=== PATIENT | female | born 1950 | race Caucasian/White ===

== ENCOUNTER 2018-03-29 14:11 | Outpatient (CLI) | payer MEDICARE, BC ==
--- NOTE | 2018-03-29 16:03 | BD ---
DEXA BONE MINERAL DENSITOMETRY STUDY 03/29/18 HISTORY: Osteopenia. FINDINGS: Lumbar Spine: BMD (g/cm2) L1 0.838 T-Score: -1.4 Z-Score: 0.3 L2 0.994 T-Score: -0.3 Z-Score: 1.6 L3 1.002 T-Score: -0.7 Z-Score: 1.2 L4 0.959 T-Score: -0.9 Z-Score: 1.1 L1-L4 0.952 T-Score: -0.9 Z-Score: 1.0 Left Femoral Neck: 0.695 T-Score: -1.4 Z-Score: 0.2 Total Femur: 0.838 T-Score: -0.9 Z-Score: 0.5 There is right convex scoliosis of the lumbar spine with prominent degenerative changes in the lumbar spine which may possibly elevate the bone mineral density and underestimate the risk for fracture. Impression: 1. Mild osteopenia left femoral neck indicating two fold increased risk for fracture. 2. Normal bone mineralization of lumbar spine, but as noted above, there are degenerative change s in the spine which may underestimate the risk for fracture. 3. Ten year major osteoporotic risk fracture is 13% with ten year hip fracture risk of 1.6%. 4. Right convex scoliosis thoracolumbar spine. POS: HILARIA
== END 2018-03-29 14:12 | disposition home or self-care (01) ==
LOC: BICMAMMO 14:11
PROVIDERS: ATTEND Internal Medicine Hematology & Oncology
DX: Z12.31 Encounter for screening mammogram for malignant neoplasm of breast (principal); Z13.820 Encounter for screening for osteoporosis; M85.852 Other specified disorders of bone density and structure, left thigh; M47.896 Other spondylosis, lumbar region; M41.9 Scoliosis, unspecified; Z85.3 Personal history of malignant neoplasm of breast
CPT/HCPCS: 77063; 77067; 77080

== ENCOUNTER 2018-08-15 14:35 | Outpatient (CLI) | payer MEDICARE, BC ==
--- NOTE | 2018-08-15 15:06 | RAD ---
THREE VIEWS CHEST: Date: 08-15-18 Provided Clinical History: Dyspnea. FINDINGS: Comparison is made with the study dated 06-06-18. Cardiac and mediastinal silhouette is unchanged in appearance. Stable elevation of the right hemidiap hragm. No focal consolidation, pleural fluid or pneumothorax apparent. Post-operative changes of left shoulder arthroplasty are partially visualized. Surgical clips are see n in the right axillary region. IMPRESSION: No evidence for an acute cardiopulmonary process. POS: T[facility]
== END 2018-08-15 14:36 | disposition home or self-care (01) ==
LOC: RAD 14:35
PROVIDERS: ATTEND Internal Medicine Pulmonary Disease
DX: R06.00 Dyspnea, unspecified (principal)
CPT/HCPCS: 71046

== ENCOUNTER 2018-09-28 21:10 | Inpatient (IN) | payer MEDICARE, BC ==
[2018-09-28 21:48] LABS: #Lymphocytes 0.9 thou/uL (1.20-3.40); #Monocytes 0.4 thou/uL (0.11-0.59); #Neutrophils 5.2 thou/uL (1.40-6.50); %Basophils 0.2 % (0.0-1.0); %Eosinophils 0.1 % (0.0-10.0); %Monocytes 6.6 % (0.0-10.0); Hemoglobin 12.5 g/dL (12.0-16.0); Mean Corpuscular HGB CONC 33.3 g/dL (32.0-36.0); Mean Corpuscular Hemoglobin 31.2 pg (27.0-31.0); Mean Corpuscular Volume 93.7 fL (78.0-98.0); Mean Platelet Volume 6.6 fL (7.4-10.4); Platelet Count 242 thou/uL (130-400); RBC Distribution Width 12.8 % (11.5-14.5); Red Blood Cell (RBC) Count 3.99 mill/uL (4.20-5.40); White Blood Cell (WBC) Count 6.5 thou/uL (4.8-10.8)
--- NOTE | 2018-09-28 21:49 | RAD ---
FEXAM: Portable chest INDICATIONS: Dyspnea COMPARISON: 08/15/2018 FINDINGS: Heart size upper normal. There is vascular congestion. Diffuse interstitial hazy alveolar o pacities bilaterally, more prominent on the right. Findings may represent diffuse edema although supe rimposed inflammatory process cannot be excluded. Elevated right hemidiaphragm again noted. IMPRESSION: Vascular congestion with evidence of interstitial and patchy alveolar edema more prominen t on the right. Superimposed infiltrate not excluded.
[2018-09-28 22:18] LABS: ALT (SGPT) 80 U/L (8-55); AST (SGOT) 55 U/L (5-34); Albumin 4.1 g/dL (3.4-4.8); Alkaline Phosphatase 143 U/L (40-150); Anion Gap 14 mmol/L (10-20); BUN (Urea Nitrogen) 12 mg/dL (9.8-20.1); Bilirubin, Total 0.3 mg/dL (0.2-1.2); Calc. Creatinine Clearance 0 mL/min (70-130); Calcium 9.6 mg/dL (7.8-10.44); Carbon Dioxide 31 mmol/L (23-31); Chloride 90 mmol/L (98-107); Estimated GFR-MDRD 85; Globulin 2.3 g/dL (2.4-3.5); Glucose 137 mg/dL (80-115); Potassium 4.8 mmol/L (3.5-5.1); Protein, Total 6.4 g/dL (6.0-8.3); Sodium 130 mmol/L (136-145)
[2018-09-28 22:36] LABS: Bilirubin Negative (Negative); Blood, Urine Negative (Negative); Clarity CLEAR (Clear); Glucose, Urine (Dipstick) Negative (Negative); Leukocyte Negative (Negative); Nitrite Negative (Negative); Protein, Urine (Dipstick) Trace mg/dL (Neg-Trace); Urobilinogen 0.2 mg/dL (0.2-1.0)
[2018-09-28 22:45] LABS: CKMB 3.4 ng/mL (0-6.6)
--- NOTE | 2018-09-28 22:59 | PDOC.FPRHP ---
Addendum entered and electronically signed by Alethea Avendano MD 09/29/18 05:50 : ROS: Endorses Dyspnea, Cough, Fever, Chills, congestion Denies: Vision changes, sore throat, chest pain, palpitations, abdominal pain, diarrhea, constipation, tingling, numbness, lesions, rash, dysuria PE: A&Ox3, in no acute distress. Speaking in full sentences Neck: No LAD, supple CV: RRR, no murmurs, radial and dorsalis pedis pulses 2+ Pulm: Diffuse expiratory wheezing Abdominal: BS+, nontender on palpation, no masses MSK: No edema, no obvious deformities Skin: No rash Original Note: - History of Present Illness Chief Complaint: SOB History of Present Illness: Ms Gomez is a68yo female with pmh of prediabetes presenting with SOB. She was diagnosed with pneumonia at [facility] 09/26 by CXR and started on levaquin. She has taken 2 doses so far and has had worsening of symptoms. Reports 3 weeks ago symptoms started as URI, cough, sore throat, congestion. Endorses subjective fever, episode of hemoptysis this AM, teaspoon amt of blood. She is not on oxygen at baseline. Has been hospitalized twice before for pneumonia, last hospitalization May 2018. PCP: [facility] (Dr Harrison) ED Course: Levaquin 750mg, 1L NS Trop 0.052 CXR: Vascular congestion with evidence of interstitial and patchy alveolar edema more prominent on the right - Allergies/Adverse Reactions Allergies Allergy/AdvReac Type Severity Reaction Status Date / Time No Known Drug Allergies Allergy Verified 09/29/18 02:30 - Home Medications Medication Instructions Recorded Confirmed Type Escitalopram Oxalate 20 mg PO QAM 09/28/18 09/29/18 History clonazePAM [Klonopin] 0.5 mg PO BID PRN 09/28/18 09/28/18 History metFORMIN [Glucophage] 500 mg PO QAM 09/28/18 09/29/18 History Albuterol Sulfate [Ventolin HFA] 2 puff INH Q4HR PRN 09/29/18 09/29/18 History Cholecalciferol (Vitamin D3) 10,000 unit PO DAILY 09/29/18 09/29/18 History [Vitamin D3] Diclofenac Sodium DR [Voltaren] 50 mg PO BID 09/29/18 09/29/18 History - History PMHx: Prediabetes, Anxiety/depression, hx of breast cancer s/p mastectomy, solitary lung nodule PSHx: Shoulder reverse replacement FHx: Noncontributory Social: Hx of cocaine abuse. Former smoker 12.5 pack years, quit in 2010 after 25yrs. Drinks 2 beers/wk - Vital signs BP: 146/81 HR: 98 RR: 23 Tmax: 98.9 Pox: 94% on 4L Wt: 59kg - Physical Exam Constitutional: NAD, awake, alert and oriented, well developed FMR H&P: Results - Labs Result Diagrams: 09/29/18 06:37 09/29/18 06:37 Lab results: WBC 6.5 thou/uL (4.8-10.8) 09/28/18 21:26 Hgb 12.5 g/dL (12.0-16.0) 09/28/18 21:26 Hct 37.4 % (36.0-47.0) 09/28/18 21:26 MCV 93.7 fL (78.0-98.0) 09/28/18 21:26 Plt Count 242 thou/uL (130-400) 09/28/18 21:26 Neutrophils % 79.0 % (42.0-75.0) H 09/28/18 21:26 Sodium 130 mmol/L (136-145) L 09/28/18 21:26 Potassium 4.8 mmol/L (3.5-5.1) 09/28/18 21:26 Chloride 90 mmol/L (98-107) L 09/28/18 21:26 Carbon Dioxide 31 mmol/L (23-31) 09/28/18 21:26 BUN 12 mg/dL (9.8-20.1) 09/28/18 21:26 Creatinine 0.69 mg/dL (0.6-1.1) 09/28/18 21:26 Glucose 137 mg/dL (80-115) H 09/28/18 21:26 Lactic Acid 1.7 mmol/L (0.5-2.2) 09/28/18 21:26 Calcium 9.6 mg/dL (7.8-10.44) 09/28/18 21:26 Total Bilirubin 0.3 mg/dL (0.2-1.2) 09/28/18 21:26 AST 55 U/L (5-34) H 09/28/18 21:26 ALT 80 U/L (8-55) H 09/28/18 21:26 Alkaline Phosphatase 143 U/L (40-150) 09/28/18 21:26 CK-MB (CK-2) 3.4 ng/mL (0-6.6) 09/28/18 21:26 B-Natriuretic Peptide 86.6 pg/mL (0-100) 09/28/18 21:26 Serum Total Protein 6.4 g/dL (6.0-8.3) 09/28/18 21:26 Albumin 4.1 g/dL (3.4-4.8) 09/28/18 21:26 Urine Ketones 80 mg/dL (Negative) H 09/28/18 22:22 Urine Blood Negative (Negative) 09/28/18 22:22 Urine Nitrite Negative (Negative) 09/28/18 22:22 Ur Leukocyte Esterase Negative (Negative) 09/28/18 22:22 - EKG Interpretation EKG: normal sinus rhythm, Rate (beats per minute): 100, T waves normal, [place] normal. - Radiology Interpretation Chest x-ray Status: image reviewed by me, report reviewed by me Additional comment: Vascular congestion with evidence of interstitial and patchy alveolar edema more prominent on the right. Superimposed infiltrate not excluded FMR H&P: A/P - Problem List (1) Acute respiratory failure with hypoxia Current Visit: Yes Status: Acute Code(s): J96.01 - ACUTE RESPIRATORY FAILURE WITH HYPOXIA (2) Pneumonia Current Visit: Yes Status: Acute Code(s): J18.9 - PNEUMONIA, UNSPECIFIED ORGANISM (3) Prediabetes Current Visit: Yes Status: Chronic Code(s): R73.03 - PREDIABETES (4) Anxiety Current Visit: Yes Status: Chronic Code(s): F41.9 - ANXIETY DISORDER, UNSPECIFIED (5) Depression Current Visit: Yes Status: Chronic Code(s): F32.9 - MAJOR DEPRESSIVE DISORDER, SINGLE EPISODE, UNSPECIFIED (6) Hx of breast cancer Current Visit: Yes Status: Chronic Code(s): Z85.3 - PERSONAL HISTORY OF MALIGNANT NEOPLASM OF BREAST - Plan Ms Gomez is a 68yo female with pmh of prediabetes, former tobacco abuse Acute hypoxic respiratory failure 2/2 pneumonia failed outpt treatment - SpO2 54% on RA initially, currently 94% on 4L NC - CXR: Vascular congestion with evidence of interstitial and patchy alveolar edema more prominent on the right. BNP 86 - 2 days outpt levaquin prior to presentation - s/p Levaquin in ED - Starting Azithromycin and Rocephin - S/p 1L NS - Supplemental O2, maintain sats >94% - Procal ordered - Blood cultures pending - Admit to medical Indeterminate troponin - likely secondary to demand ischemia - EKG no ST segment changes - Continue to trend Hyponatremia - 130 - Urine studies ordered - Continue to monitor Prediabetes - Last A1c > 3mo ago. No records - A1c ordered - CC diet - Continue home metformin Transaminitis - Hep studies ordered - RUQ US Anxiety/Depression - Continue home Clonazepam PRN and Escitalopram Hx of Breast Cancer s/p mastectomy Code Status: FULL DVT ppx: SCDs PCP: [facility] (Dr Harrison) FMR H&P: Upper Level - Pertinent history Pooja Gomez is a 68 year old female who presents to the ED with a complaint of worsening shortness of breath and cough despite recent antibiotic treatment for pneumonia. [facility] and given Levaquin. She reports worsening of her symptoms. She had an episode of hemoptysis this evening. - Pertinent findings Exam: General:Alert and oriented; no apparent distress Heart: regular rate and rhythm, no murmurs, rubs, or gallops Lungs:faint expiratory wheezes heard diffusely Extremities: no edema CXR: vascular congestion, patchy alveolar edema. - Plan Date/Time: 09/28/18 1170 Maddie Robles, have evaluated this patient and agree with findings/plan as outlined by internet marketing analyst resident. Pertinent changes/additions are listed here. Acute hypoxic respiratory failure secondary to community acquired pneumonia - Will admit to medical floor as an inpatient. - Azithromycin and Rocephin. Will de-escalate as patient improves. - supplemental oxygen as needed to keep sats > 90% - sputum GS/culture. - procalcitonin. blood cultures pending. Indeterminate troponin - likely secondary to demand ischemia. - will trend - EKG negative for STEMI Mild hyponatremia - possibly SIADH given pulmonary pathology. - will further evaluate with serum and urine studies. Elevated transaminases - hepatitis panel. - RUQ US History of breast cancer - ER/GA/HER-2 positive; s/p right simple mastectomy Pre-diabetes - will obtain A1C Addendum - Attending - Attending Attestation Date/Time: 09/29/18 0711 I personally evaluated the patient and discussed the management with Dr. Avendano I agree with the History, Examination, Assessment and Plan documented above with any addition or exceptions noted below. 68 yo female with worsening fever chills and malaise s/p starting levaquin for Pneumonia patient with respiratory failure admitted with failed outpatient management of CAP. PMHX breast CA s/p mastectomy and reconstruction 2010 [place] , [place] no chemo no XRT, Patient followed by Dr Carrington pulmonary nodule and chronic bronchtis. Lovenox for DVT prophylaxis.[id number] low at admission note elevated troponin will continue to trend. US for evaluation elevated LFT's
[2018-09-28] MEDS ORDERED: Aspirin Chewable 81 MG TAB ONE (23:05)
[2018-09-29] MEDS ORDERED: HYDROcodone/Acetaminophen 10/325 mg Tablet ONE (00:14)
[2018-09-29] MEDS ORDERED: Ibuprofen 200 MG TAB PO PRN (01:40)
[2018-09-29] MEDS ORDERED: Diabetic Tussin 200 MG/10 ML UDCUP PO PRN (01:40)
[2018-09-29] MEDS ORDERED: clonazePAM 0.5 MG TAB PO PRN (01:40)
[2018-09-29 01:45] LABS: CKMB 3.2 ng/mL (0-6.6)
[2018-09-29] MEDS: cefTRIAXone\\ROCEPHIN 1 GM in Sodium Chloride 0.9% 100 ML IVPB SCH (02:31)
[2018-09-29 02:39] LABS: HBSAg Index 0.36 S/CO (0-0.99); Hep A IgM AB Non-Reactive (NonReactive); Hep A IgM S/CO 0.21 S/CO (0-0.79); Hep B Surf Ag Non-Reactive S/CO (NonReactive); Hep C IgG Ab Non-Reactive (NonReactive); Hepatitis B Core IgM Abs Non-Reactive (NonReactive)
[2018-09-29] MEDS: Azithromycin 500 MG in Sodium Chloride 0.9% 250 ML 250 ML IVPB SCH (03:24)
[2018-09-29 03:30] VITALS: BMI 22.3
[2018-09-29 06:57] LABS: #Lymphocytes 1.3 thou/uL (1.20-3.40); #Monocytes 0.5 thou/uL (0.11-0.59); #Neutrophils 2.4 thou/uL (1.40-6.50); %Basophils 0.5 % (0.0-1.0); %Eosinophils 0.4 % (0.0-10.0); %Lymphocytes 30.9 % (21.0-51.0); %Monocytes 11.9 % (0.0-10.0); %Neutrophils 56.3 % (42.0-75.0); Hemoglobin 11.7 g/dL (12.0-16.0); Mean Corpuscular HGB CONC 33.3 g/dL (32.0-36.0); Mean Corpuscular Hemoglobin 31.1 pg (27.0-31.0); Mean Corpuscular Volume 93.5 fL (78.0-98.0); Mean Platelet Volume 6.6 fL (7.4-10.4); Platelet Count 220 thou/uL (130-400); RBC Distribution Width 12.7 % (11.5-14.5); Red Blood Cell (RBC) Count 3.75 mill/uL (4.20-5.40); White Blood Cell (WBC) Count 4.3 thou/uL (4.8-10.8)
[2018-09-29 07:06] LABS: Hemoglobin A1c 5.2 % (4.0-6.0)
[2018-09-29 07:18] LABS: Anion Gap 10 mmol/L (10-20); BUN (Urea Nitrogen) 5 mg/dL (9.8-20.1); Calc. Creatinine Clearance 92 mL/min (70-130); Calcium 9.1 mg/dL (7.8-10.44); Carbon Dioxide 35 mmol/L (23-31); Chloride 96 mmol/L (98-107); Estimated GFR-MDRD Greater than 90; Glucose 113 mg/dL (80-115); Potassium 4.3 mmol/L (3.5-5.1); Sodium 137 mmol/L (136-145)
[2018-09-29 07:25] LABS: Troponin I 0.058 ng/mL (< 0.028)
--- NOTE | 2018-09-29 07:46 | PDOC.FM ---
- Subjective Subjective: Pt states she is doing fair this morning. She denies sob but admits that she is also on O2 currently. She states she has not coughed up blood since she has been here. She denies chest pain, abdominal pain, or nausea/vomiting. She denies any exposure to TB including fci, sick contacts, or shelters. - Objective MAR Reviewed: Yes Vital Signs & Weight: Vital Signs (12 hours) Temp Pulse Resp BP Pulse Ox 09/29/18 04:18 97.5 F L 77 21 H 147/69 H 93 L 09/29/18 03:31 84 20 09/29/18 01:37 96.9 F L 80 20 134/79 93 L Weight Weight 62.681 kg I&O: 09/28/18 09/29/18 09/30/18 06:59 06:59 06:59 Intake Total 500 Output Total 200 Balance 300 Result Diagrams: 09/29/18 06:37 09/29/18 06:37 Phys Exam - Physical Examination Constitutional: NAD HEENT: moist MMs Neck: supple, full ROM Crackles in left mid and lower lobe Cardiovascular: RRR S2 splitting increased with inspiration Gastrointestinal: soft, non-tender, no distention, positive bowel sounds Musculoskeletal: no edema, pulses present Neurological: normal sensation, moves all 4 limbs Psychiatric: A&O x 3 Skin: cap refill <2 seconds Dx/Plan (1) Acute respiratory failure with hypoxia Code(s): J96.01 - ACUTE RESPIRATORY FAILURE WITH HYPOXIA Status: Acute (2) Pneumonia Code(s): J18.9 - PNEUMONIA, UNSPECIFIED ORGANISM Status: Acute (3) Anxiety Code(s): F41.9 - ANXIETY DISORDER, UNSPECIFIED Status: Chronic (4) Depression Code(s): F32.9 - MAJOR DEPRESSIVE DISORDER, SINGLE EPISODE, UNSPECIFIED Status : Chronic (5) Hx of breast cancer Code(s): Z85.3 - PERSONAL HISTORY OF MALIGNANT NEOPLASM OF BREAST Status: Chronic - Plan Plan: This is a 68 yo female with a pmh of breast cancer Acute hypoxic respiratory failure 2/2 pneumonia outpt -Satting at 93 on 4L currently -CXR suggestive of PNA -Pt on azithromycin and rocephin -Procal negative Pending blood cultures -Maintain O2 >92% Indeterminate troponin -Levels have plateaued -No EKG changes -likely demand ischemia -Hyponatremia, resolved Prediabetes -A1c 5.2 -CC diet -continue metformin Transaminitis -Hepititis panel negative -Pending RUQ US Anxiety/depression -Continue home meds Hx of breast cancer s/p masectomy, no radiation Addendum - Attending - Attending Attestation Date/Time: 09/29/18 1403 I personally evaluated the patient and discussed the management with Dr. Poole I agree with the History, Examination, Assessment and Plan documented above with any addition or exceptions noted below. History of recurrent Pneumonias Patent with PMHX breast Ca and questionable pre- existing pulmonary abnormalities. Patient procalcitonin is negative which is unusual give ineffective treatment with 2 doses of levaquin rec consider atypical etiologies history of breast cancer, vasculitis rec continue current treatment CT chest today and consider inpt Pulmonary consult if not improving on serial exam and f/ u CXR.
[2018-09-29] MEDS ORDERED: Non-Formulary Item 1 EACH (Cholecalciferol (Vitamin D3) [Vitamin D3] 10,000 UNIT) PO SCH (09:00)
--- NOTE | 2018-09-29 09:00 | ULT ---
RIGHT UPPER QUADRANT ULTRASOUND: Date: 09/29/18 INDICATION: Elevated LFTs. COMPARISON: None. FINDINGS: Overlying bowel gas limits image detail. There is some increased echogenicity of the liver which may reflect mild fatty infiltration. Gallbladder within normal limits. No sonographic Munoz's sign repor dany. Pancreas obscured. Right kidney measures 10.1 cm in length. No hydronephrosis. Focal renal lesio n is evident. Common bile duct measured approximately 4.0 mm. IMPRESSION: 1. Some limitations of exam due to overlying bowel gas. 2. No definite acute sonographic abnormality. POS: BH
[2018-09-29] MEDS: Diclofenac Sodium 50 MG DR TAB PO SCH ×2 (10:26→20:51)
[2018-09-29] MEDS: Escitalopram Oxalate 20 mg Tablet PO SCH (10:27)
[2018-09-29] MEDS: metFORMIN 500 MG TAB PO SCH (10:30)
[2018-09-29] MEDS: Enoxaparin Sodium 40 MG/0.4 ML SYRINGE SC SCH (10:30)
[2018-09-29] MEDS: HYDROcodone/Acetaminophen 10/325 mg Tablet PO PRN (10:31)
--- NOTE | 2018-09-29 11:07 | CT ---
T Chest W Con: 09/29/2018 10:16 AM CLINICAL INDICATION: Shortness of breath and concern for pulmonary nodule. COMPARISON: CTA of the thorax dated June 06, 2018. Procedure: Chest: FINDINGS: Lung and Large Airways: There is patchy airspace opacity within the right upper lobe, right middle lo be, right lower lobe, left upper lobe and lingula. There is also some patchy opacities within the sup erior segment of the left lower lobe. Pleura: within normal limits. Vessels: within normal limits. Atherosclerotic changes in the aorta and coronary arteries. Heart: normal size. No pericardial effusion. Mediastinum and Evon: There are mildly prominent prevascular lymph nodes. The largest measures 1 cm o n image 19 series 2. Chest Wall and Lower Neck: within normal limits. Upper Abdomen: within normal limits. Bones: within normal limits. Thoracolumbar scoliosis. IMPRESSION: Patchy airspace opacities throughout both lungs is suspicious for pneumonia Enlarged lymph nodes of the mediastinum may be reactive. Recommendations: CT follow-up after appropriate therapy is recommended to document clearance.
[2018-09-29] MEDS ORDERED: ISOVUE-370 76%-LOCM 1 ML ONE (15:36)
[2018-09-30] MEDS: cefTRIAXone\\ROCEPHIN 1 GM in Sodium Chloride 0.9% 100 ML IVPB SCH (02:42)
[2018-09-30] MEDS: Azithromycin 500 MG in Sodium Chloride 0.9% 250 ML 250 ML IVPB SCH (03:18)
[2018-09-30 05:17] LABS: #Eosinphils 0.1 thou/uL (0.0-0.7); #Lymphocytes 1.3 thou/uL (1.20-3.40); #Monocytes 0.7 thou/uL (0.11-0.59); #Neutrophils 3.9 thou/uL (1.40-6.50); %Basophils 0.8 % (0.0-1.0); %Eosinophils 1.1 % (0.0-10.0); %Lymphocytes 21.5 % (21.0-51.0); %Monocytes 11.7 % (0.0-10.0); %Neutrophils 64.8 % (42.0-75.0); Hemoglobin 11.2 g/dL (12.0-16.0); Mean Corpuscular HGB CONC 33.1 g/dL (32.0-36.0); Mean Corpuscular Hemoglobin 31.5 pg (27.0-31.0); Mean Corpuscular Volume 95.3 fL (78.0-98.0); Mean Platelet Volume 6.5 fL (7.4-10.4); Platelet Count 225 thou/uL (130-400); RBC Distribution Width 12.7 % (11.5-14.5); Red Blood Cell (RBC) Count 3.54 mill/uL (4.20-5.40)
[2018-09-30 05:38] LABS: Anion Gap 10 mmol/L (10-20); BUN (Urea Nitrogen) 5 mg/dL (9.8-20.1); Calc. Creatinine Clearance 96 mL/min (70-130); Calcium 8.6 mg/dL (7.8-10.44); Carbon Dioxide 36 mmol/L (23-31); Chloride 98 mmol/L (98-107); Estimated GFR-MDRD Greater than 90; Glucose 131 mg/dL (80-115); Potassium 3.8 mmol/L (3.5-5.1); Sodium 140 mmol/L (136-145)
--- NOTE | 2018-09-30 07:02 | PDOC.FM ---
- Subjective Subjective: Pt states she is breathing well this morning. She denies chest pain, headaches, nausea, vomiting, or abdominal pain. She did report an episode of diarrhea overnight. She did reports exposure to a walk in chicken coup. - Objective MAR Reviewed: Yes Vital Signs & Weight: Vital Signs (12 hours) Temp Pulse Resp BP BP Pulse Ox 09/30/18 03:19 97.9 F 76 18 135/63 96 09/29/18 20:51 86 18 09/29/18 19:45 98.1 F 72 18 122/59 L 97 Weight Admit Weight 62.681 kg Weight 62.681 kg I&O: 09/29/18 09/30/18 10/01/18 06:59 06:59 06:59 Intake Total 500 500 Output Total 200 300 Balance 300 200 Result Diagrams: 09/30/18 04:57 09/30/18 04:57 Phys Exam - Physical Examination Constitutional: NAD HEENT: moist MMs Neck: supple, full ROM Respiratory: no wheezing Crackles on the left side Cardiovascular: RRR, no significant murmur, no rub Gastrointestinal: soft, non-tender, no distention, positive bowel sounds Musculoskeletal: no edema, pulses present Neurological: normal sensation, moves all 4 limbs Psychiatric: normal affect, A&O x 3 Skin: cap refill <2 seconds Dx/Plan (1) Acute respiratory failure with hypoxia Code(s): J96.01 - ACUTE RESPIRATORY FAILURE WITH HYPOXIA Status: Acute (2) Pneumonia Code(s): J18.9 - PNEUMONIA, UNSPECIFIED ORGANISM Status: Acute (3) Anxiety Code(s): F41.9 - ANXIETY DISORDER, UNSPECIFIED Status: Chronic (4) Depression Code(s): F32.9 - MAJOR DEPRESSIVE DISORDER, SINGLE EPISODE, UNSPECIFIED Status : Chronic (5) Hx of breast cancer Code(s): Z85.3 - PERSONAL HISTORY OF MALIGNANT NEOPLASM OF BREAST Status: Chronic - Plan Plan: This is a 68 yo female with a pmh of breast cancer Acute hypoxic respiratory failure 2/2 pneumonia outpt -Satting at 97 on 4L currently -CXR suggestive of PNA, CT chest -Pt on azithromycin and rocephin -Procal negative -Legionella pending -PATRICIA pending -Pending histoplasmosis urine antigen Pending blood cultures -Maintain O2 >92% Indeterminate troponin -Levels have plateaued -No EKG changes -likely demand ischemia -Hyponatremia, resolved Prediabetes -A1c 5.2 -CC diet -continue metformin Transaminitis -Hepititis panel negative -Pending RUQ US Anxiety/depression -Continue home meds Hx of breast cancer s/p masectomy, no radiation Addendum - Attending - Attending Attestation Date/Time: 09/30/18 7085 I personally evaluated the patient and discussed the management with Dr. Poole I agree with the History, Examination, Assessment and Plan documented above with any addition or exceptions noted below. Pneumonia improved patient still oxygen dependant continue current RX rocephin / zithromaxfor CAP, nebulizer treatment and steroids per Pulmonary recommendations. Appreciate another recommendations. Breast CA s/p bilateral mastectomy at 6 year oumar chronic Bronchitis hx tobacco abuse Prediabetes monitor BS with addition steroids
[2018-09-30] MEDS: Diclofenac Sodium 50 MG DR TAB PO SCH ×2 (09:18→21:07)
[2018-09-30] MEDS: Enoxaparin Sodium 40 MG/0.4 ML SYRINGE SC SCH (09:19)
[2018-09-30] MEDS: Escitalopram Oxalate 20 mg Tablet PO SCH (09:19)
[2018-09-30] MEDS: metFORMIN 500 MG TAB PO SCH (09:19)
[2018-09-30] MEDS ORDERED: predniSONE 20 MG TAB PO SCH (12:00)
[2018-09-30 16:56] LABS: Actual Bicarbonate (HCO3a) 36.5 mEq/L (22-28); Calcium, Ionized 1.14 mmol/L (1.12-1.30); Carboxyhemoglobin (COHb) 0.4 gm% (0.0-3.0); Hemoglobin (Hb) 11.7 g/dL (12.0-16.0); O2 Tension (PaO2) 63.6 mmHg (> 80.0); Potassium - ABG Lab 3.37 mmol/L (3.70-5.30); pH, Arterial 7.36 (7.35-7.45)
[2018-09-30 16:57] LABS: CO2 Tension 65.9 mmHg (35.0-45.0)
[2018-09-30 16:58] LABS: ALV-art Gradient 110.705 (0-20)
--- NOTE | 2018-09-30 17:46 | CON ---
DATE OF CONSULTATION: 09/30/2018 SERVICE: Pulmonary Medicine. REASON FOR CONSULTATION: Respiratory failure. HISTORY OF PRESENT ILLNESS: The patient is a 68-year-old white female with past medical history significant for essentially nothing. For the last 20 years, she has had known about elevated right hemidiaphragm. She recalls having a sniff test roughly 10 years ago. At that point, she was told that her diaphragm was functioning. She has had multiple ABGs previously. She does not know if she has ever had hypercapnic failure. Either way, she presented to her primary care physician with fevers, chills, cough bring up sputum production, and a little bit hemoptysis. Ultimately, she was appropriately diagnosed as having a community-acquired pneumonia. Since being on antibiotics, she has felt a lot better, but she continues to have dyspnea that limits her activity. Every time she is intubated for procedure, or is given sedating medications, or is exposed to viruses, she has episodes of hypoxemia. People have a very challenging time getting her off oxygen. This issue goes back over a decade. She is returning to her usual state of health. She does not have any current hemoptysis. Her fever profile has improved and she is actually feeling much improved. PAST MEDICAL HISTORY: 1. Chronically elevated right hemidiaphragm. 2. Breast cancer, status post bilateral mastectomy without ever using chemotherapy or radiation therapy. 3. Anxiety disorder. 4. Major depressive disorder. 5. Prediabetes. PAST SURGICAL HISTORY: 1. Shoulder reverse replacement. 2. Arthroscopy of the shoulder. FAMILY HISTORY: Noncontributory. SOCIAL HISTORY: She has a remote history of cocaine abuse. She has a 12.5 pack year history of smoking, but quit in 2010. She drinks 2 beers on a weekly basis. Currently, she is going through a divorce from a man, she has been with for very long period of time. He has a history of alcoholism. She has no exposure to chemicals, dust, asbestos, or tuberculosis. ALLERGIES: NO KNOWN DRUG ALLERGIES. MEDICATIONS: List of her inpatient medications was reviewed. A couple of small updates were made at this time. REVIEW OF SYSTEMS: General; head, ears, eyes, nose, throat; cardiovascular; respiratory; GI; ; musculoskeletal; neurologic; and skin are negative except as mentioned in the HPI. PHYSICAL EXAMINATION: VITAL SIGNS: Afebrile, pulse 78, blood pressure 132/69, respirations 12, and saturation 94% on 4 L nasal cannula. GENERAL: The patient is awake and alert, in no apparent distress. LUNGS: Decent air entry on the left. On the right, she has very poor air entry. There is no prolonged expiratory phase. Rhonchi are present bilaterally. There are also some minimal dependent crackles, but I do not appreciate any wheezing. HEART: Normal rate and regular. ABDOMEN: Soft, nontender, and nondistended. Bowel sounds are positive. MUSCULOSKELETAL: No cyanosis or clubbing. No pitting in the bilateral lower extremities. NEUROLOGIC: Grossly nonfocal. LABORATORY DATA: WBC 6.0, hemoglobin 11.2, platelets 225,000. Basic metabolic profile is essentially unremarkable. Bicarb is 36, which is very likely to be at her baseline. BNP unremarkable, troponin negative x1. Calcium 9.1, hemoglobin A1c 5.2. Liver function studies are essentially unremarkable except for a minimally elevated AST and ALT. Procalcitonin is negative. Urinalysis is unremarkable. Specifically, she does not have any hematuria. Hepatitis serologies are negative. Blood cultures x2 remain unremarkable. IMAGING STUDIES: CT of the chest demonstrates pulmonary infiltrates scattered throughout bilateral lung schaefer. It is worse on the right compared to the left. She has ground-glass opacifications and areas that are overtly consolidated. More impressive, however, is that she has near-complete atelectasis of the entirety of the right middle lobe, right lower lobe, and most of the left lower lobe. Interstitial fullness is also present. ASSESSMENT: 1. Acute on chronic hypoxic respiratory failure. 2. Chronic hypercapnic respiratory failure. 3. Elevated right hemidiaphragm. 4. Atelectasis of the right middle lobe, right lower lobe, and left lower lobe. 5. Community-acquired pneumonia, on appropriate antibiotics. 6. Metabolic alkalosis, likely compensatory for chronic hypercapnic failure. DISCUSSION AND PLAN: I will give the patient an incentive spirometer. We will get an ABG. If her carbon dioxide level is elevated, I would argue that she should be on BiPAP or a home ventilator. I will perform a sniff study to see whether or not the diaphragm on the right is paralyzed or simply weak. I am doubtful we are dealing with a pulmonary renal process as the patient does not have any red blood cells in the urine. Repeat chest x-ray needs to be performed in the outpatient setting to verify that our infiltrate goes away. These infiltrates are new over the last month. As such, the likelihood that we are dealing with an inflammatory process is quite low. She will require outpatient pulmonary function studies once her lungs recover, and repeat imaging to verify the infiltrates resolve in 4 to 6 weeks in the outpatient setting. Dr. Carrington will continue following starting tomorrow morning. 70 minutes have been devoted to this patient in various activities. I personally reviewed all imaging studies and laboratory data noted within this document. For fifty percent of this time, I was interacting with the patient at the bedside or coordinating care with the care team. For the remainder of the time I was immediately available to the patient in the hospital unit. Job ID: [id number] [id number]
[2018-10-01] MEDS: cefTRIAXone\\ROCEPHIN 1 GM in Sodium Chloride 0.9% 100 ML IVPB SCH (01:29)
[2018-10-01] MEDS: Azithromycin 500 MG in Sodium Chloride 0.9% 250 ML 250 ML IVPB SCH (02:01)
[2018-10-01] MEDS: HYDROcodone/Acetaminophen 10/325 mg Tablet PO PRN ×2 (02:57→10:37)
[2018-10-01 05:27] LABS: #Eosinphils 0.1 thou/uL (0.0-0.7); #Lymphocytes 1.6 thou/uL (1.20-3.40); #Monocytes 0.6 thou/uL (0.11-0.59); %Basophils 0.5 % (0.0-1.0); %Eosinophils 1.5 % (0.0-10.0); %Lymphocytes 29.7 % (21.0-51.0); %Monocytes 11.4 % (0.0-10.0); %Neutrophils 56.8 % (42.0-75.0); Hemoglobin 10.6 g/dL (12.0-16.0); Mean Corpuscular HGB CONC 32.1 g/dL (32.0-36.0); Mean Corpuscular Hemoglobin 30.9 pg (27.0-31.0); Mean Corpuscular Volume 96.3 fL (78.0-98.0); Mean Platelet Volume 6.5 fL (7.4-10.4); Platelet Count 264 thou/uL (130-400); RBC Distribution Width 12.8 % (11.5-14.5); Red Blood Cell (RBC) Count 3.44 mill/uL (4.20-5.40); White Blood Cell (WBC) Count 5.2 thou/uL (4.8-10.8)
[2018-10-01 05:46] LABS: BUN (Urea Nitrogen) 6 mg/dL (9.8-20.1); Calc. Creatinine Clearance 108 mL/min (70-130); Calcium 8.6 mg/dL (7.8-10.44); Estimated GFR-MDRD Greater than 90; Glucose 103 mg/dL (80-115)
[2018-10-01 05:58] LABS: Chloride 98 mmol/L (98-107); Potassium 3.8 mmol/L (3.5-5.1); Sodium 140 mmol/L (136-145)
[2018-10-01 06:01] LABS: Anion Gap 12 mmol/L (10-20); Carbon Dioxide 34 mmol/L (23-31)
--- NOTE | 2018-10-01 06:22 | PDOC.FM ---
- Subjective Subjective: Reports improved breathing overnight. She is still requiring O2. She denies chest pain, abdominal pain, nausea, or vomiting. - Objective MAR Reviewed: Yes Vital Signs & Weight: Vital Signs (12 hours) Temp Pulse Resp BP Pulse Ox 10/01/18 04:00 97.6 F 70 16 97/53 L 95 09/30/18 20:55 94 L 09/30/18 20:45 97.6 F 75 16 138/63 94 L 09/30/18 18:32 86 12 95 Weight Admit Weight 62.681 kg Weight 62.681 kg I&O: 09/29/18 09/30/18 10/01/18 06:59 06:59 06:59 Intake Total 500 500 690 Output Total 200 300 650 Balance 300 200 40 Result Diagrams: 10/01/18 05:01 10/01/18 05:01 Phys Exam - Physical Examination Constitutional: NAD HEENT: moist MMs Neck: supple, full ROM Crackles on right side Cardiovascular: RRR, no significant murmur Gastrointestinal: soft, non-tender, no distention, positive bowel sounds Musculoskeletal: no edema, pulses present Neurological: moves all 4 limbs Psychiatric: normal affect, A&O x 3 Skin: cap refill <2 seconds Dx/Plan (1) Acute respiratory failure with hypoxia Code(s): J96.01 - ACUTE RESPIRATORY FAILURE WITH HYPOXIA Status: Acute (2) Pneumonia Code(s): J18.9 - PNEUMONIA, UNSPECIFIED ORGANISM Status: Acute (3) Anxiety Code(s): F41.9 - ANXIETY DISORDER, UNSPECIFIED Status: Chronic (4) Depression Code(s): F32.9 - MAJOR DEPRESSIVE DISORDER, SINGLE EPISODE, UNSPECIFIED Status : Chronic (5) Hx of breast cancer Code(s): Z85.3 - PERSONAL HISTORY OF MALIGNANT NEOPLASM OF BREAST Status: Chronic - Plan Plan: This is a 68 yo female with a pmh of breast cancer Acute hypoxic respiratory failure 2/2 pneumonia outpt -Satting at 95 on 4L currently -CXR suggestive of PNA, CT chest shows atelectasis -Pt on azithromycin and rocephin (09/28) -Procal negative -Legionella pending -PATRICIA pending -Pending histoplasmosis urine antigen Elevated right hemidiaphragm -Per pulmonology, pt will likely need outpt ventilator vs bipap -Repeat imaging in 4-6 weeks -Pulmonology will perform stiff test to determine function of right hemidiaphragm Pending blood cultures -NGTD at 48 hr Indeterminate troponin -Levels have plateaued -No EKG changes -likely demand ischemia -Hyponatremia, resolved Prediabetes -A1c 5.2 -CC diet -continue metformin Transaminitis -Hepititis panel negative -Pending RUQ US Anxiety/depression -Continue home meds Hx of breast cancer s/p masectomy, no radiation
--- NOTE | 2018-10-01 08:46 | RAD ---
FXR Sniff Test ([facility]) History: Right hemidiaphragm paralysis Comparison: Chest radiograph September 28, 2018 Findings: Multiple fluoroscopic images of the chest were obtained during and expiration and end inspi ration. There is decreased excursion of the right hemidiaphragm. Left hemidiaphragm is normal. There is scarr ing in both lung bases. Impression: Right hemidiaphragm paralysis. Fluoroscopy time: 0.7MIN Dose area product: 2.016Gycm^2
[2018-10-01] MEDS: Escitalopram Oxalate 20 mg Tablet PO SCH (10:34)
[2018-10-01] MEDS: Diclofenac Sodium 50 MG DR TAB PO SCH ×2 (10:35→20:38)
[2018-10-01] MEDS: metFORMIN 500 MG TAB PO SCH (10:36)
[2018-10-01] MEDS: predniSONE 20 MG TAB PO SCH (10:37)
[2018-10-01] MEDS: Enoxaparin Sodium 40 MG/0.4 ML SYRINGE SC SCH (10:37)
--- NOTE | 2018-10-01 12:11 | PRG ---
DATE OF SERVICE: 10/01/2018 SUBJECTIVE: Ms. skelton was admitted with pneumonia, as well as history of very elevated right hemidiaphragm. Her sniff test shows that she has right hemidiaphragm paralysis and this is very likely contributing to her pulmonary status. She is being treated for pneumonia and currently, she is feeling improved. Her abdominal ultrasound was obtained because of slight elevations of her transaminases. She does have fatty liver, but no evidence of cirrhosis or tumor. I would recommend screening her for immunity to hep A and B and if nonimmune, offer her vaccines for hep B. We will continue with treatment of her pneumonia. Job ID: [id number]
--- NOTE | 2018-10-01 16:24 | PRG ---
DATE OF SERVICE: 10/01/2018 SERVICE: Pulmonary Medicine. INTERVAL HISTORY: The patient is doing really well from respiratory standpoint. She is breathing comfortably. I reviewed the results of her ABG, study with her. Otherwise, there has been no change to her condition. Nursing reports no overnight events. She feels that she has cried inside of her chest, but she has a hard time liberating it. PHYSICAL EXAMINATION: VITAL SIGNS: Afebrile, pulse 76, blood pressure 161/75, respirations 20, and saturation 88% on room air. On 3 L, her saturations were maintained at 95%. HEENT: Normocephalic and atraumatic. Sclerae white. Conjunctivae pink. Oral mucosa is moist without lesions. LUNGS: Decent air entry. No prolonged expiratory phase or wheezing. HEART: Normal rate, regular. ABDOMEN: Soft, nontender, nondistended. Bowel sounds are positive. MUSCULOSKELETAL: No cyanosis or clubbing. No pitting in the bilateral lower extremities. NEUROLOGIC: Grossly nonfocal. LABORATORY DATA: WBC 5.2, hemoglobin 10.6, platelets 264,000. PH 7.36, pCO2 of 66, PO2 of 64, corresponding to a saturation of 92%. At this point, she was on 4 L nasal cannula. On room air, her saturations corresponding to 88%. Basic metabolic profile is essentially unremarkable with a creatinine of 0.5. Bicarb is at baseline of 34. Blood cultures x2, influenza A and B, respiratory culture all unremarkable. IMAGING DATA: Sniff study of the right hemidiaphragm is consistent with right diaphragmatic paralysis. ASSESSMENT: 1. Acute on chronic hypoxic respiratory failure. 2. Chronic hypercapnic respiratory failure. 3. Community-acquired pneumonia, improving. 4. Right hemidiaphragm paralysis. 5. Atelectasis of the right middle lobe, right lower lobe, and left lower lobe. 6. Metabolic alkalosis, compensating for her chronic hypercapnic failure. DISCUSSION AND PLAN: The patient has horrendous hypercapnic respiratory failure. 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 Because of the severity of this disease process, I am ordering volume control ventilation for nighttime, and as needed daytime use. Traditional BiPAP would be insufficient to control her respiratory failure, because of the severity of this illness. Antibiotics can be interrupted after a total duration of 7 days. From my perspective, she is stable for discharge from the hospital. She will likely need to be set up with home oxygen for daytime use as she has chronic hypoxic respiratory failure which has been exacerbated by a small amount of pneumonia. Should she fail noninvasive therapy, a HACEK device will be considered prior to any type of tracheostomy. At this point, she is stable for transition out of the hospital provided that we have appropriate equipment set up for her in her home. I will have her follow up with me in clinic in 4 to 6 weeks in the outpatient setting. We will repeat a chest x-ray to verify the infiltrates have gone away. Job ID: [id number]
[2018-10-02] MEDS: cefTRIAXone\\ROCEPHIN 1 GM in Sodium Chloride 0.9% 100 ML IVPB SCH (02:55)
[2018-10-02 06:09] LABS: #Lymphocytes 1.6 thou/uL (1.20-3.40); #Monocytes 0.5 thou/uL (0.11-0.59); #Neutrophils 2.6 thou/uL (1.40-6.50); %Basophils 0.4 % (0.0-1.0); %Eosinophils 0.5 % (0.0-10.0); %Lymphocytes 33.6 % (21.0-51.0); %Monocytes 9.9 % (0.0-10.0); %Neutrophils 55.6 % (42.0-75.0); Hemoglobin 10.8 g/dL (12.0-16.0); Mean Corpuscular HGB CONC 32.7 g/dL (32.0-36.0); Mean Corpuscular Hemoglobin 31.2 pg (27.0-31.0); Mean Corpuscular Volume 95.4 fL (78.0-98.0); Mean Platelet Volume 6.3 fL (7.4-10.4); Platelet Count 311 thou/uL (130-400); RBC Distribution Width 12.6 % (11.5-14.5); Red Blood Cell (RBC) Count 3.47 mill/uL (4.20-5.40); White Blood Cell (WBC) Count 4.6 thou/uL (4.8-10.8)
[2018-10-02 06:23] LABS: BUN (Urea Nitrogen) 8 mg/dL (9.8-20.1); Calc. Creatinine Clearance 106 mL/min (70-130); Estimated GFR-MDRD Greater than 90; Glucose 101 mg/dL (80-115)
[2018-10-02 06:32] LABS: Anion Gap 11 mmol/L (10-20); Carbon Dioxide 36 mmol/L (23-31); Chloride 97 mmol/L (98-107); Potassium 3.8 mmol/L (3.5-5.1); Sodium 140 mmol/L (136-145)
--- NOTE | 2018-10-02 06:36 | PDOC.FM ---
- Subjective Subjective: Pt reports her breathing was good overnight. She denies fever, chills, nausea, vomiting, or chest pain. She states she is ready to home. - Objective MAR Reviewed: Yes Vital Signs & Weight: Vital Signs (12 hours) Temp Pulse Resp BP BP Pulse Ox 10/02/18 04:00 97.9 F 69 17 150/72 H 97 10/01/18 20:45 98.2 F 83 18 127/57 L 94 L 10/01/18 20:10 94 L Weight Admit Weight 62.681 kg Weight 62.681 kg I&O: 09/30/18 10/01/18 10/02/18 06:59 06:59 06:59 Intake Total 575 452 1430 Output Total 031 761 4706 Balance 200 40 -410 Result Diagrams: 10/02/18 05:45 10/02/18 05:44 Phys Exam - Physical Examination Constitutional: NAD HEENT: moist MMs Neck: no JVD, supple, full ROM Crackles worst on the left Cardiovascular: RRR, no significant murmur, no rub Gastrointestinal: soft, non-tender, no distention, positive bowel sounds Musculoskeletal: no edema, pulses present Neurological: moves all 4 limbs Psychiatric: normal affect, A&O x 3 Skin: cap refill <2 seconds Dx/Plan (1) Acute respiratory failure with hypoxia Code(s): J96.01 - ACUTE RESPIRATORY FAILURE WITH HYPOXIA Status: Acute (2) Pneumonia Code(s): J18.9 - PNEUMONIA, UNSPECIFIED ORGANISM Status: Acute (3) Anxiety Code(s): F41.9 - ANXIETY DISORDER, UNSPECIFIED Status: Chronic (4) Depression Code(s): F32.9 - MAJOR DEPRESSIVE DISORDER, SINGLE EPISODE, UNSPECIFIED Status : Chronic (5) Hx of breast cancer Code(s): Z85.3 - PERSONAL HISTORY OF MALIGNANT NEOPLASM OF BREAST Status: Chronic - Plan Plan: This is a 68 yo female with a pmh of breast cancer Acute hypoxic respiratory failure 2/2 pneumonia outpt -Satting at 95 on 4L currently -CXR suggestive of PNA, CT chest shows atelectasis -Pt on azithromycin and rocephin (09/28) -Procal negative -Legionella pending -PATRICIA pending -Pending histoplasmosis urine antigen Elevated right hemidiaphragm -Per pulmonology, pt will likely need outpt ventilator -Repeat imaging in 4-6 weeks -Confirmed by sniff test Pending blood cultures -NGTD at 48 hr Indeterminate troponin -Levels have plateaued -No EKG changes -likely demand ischemia -Hyponatremia, resolved Prediabetes -A1c 5.2 -CC diet -continue metformin Transaminitis -Hepititis panel negative -Pending RUQ US -Pt to receive Hepatitis A and B vaccine Anxiety/depression -Continue home meds Hx of breast cancer s/p masectomy, no radiation
[2018-10-02 06:51] LABS: HBSAg Index 0.31 S/CO (0-0.99); Hep B Core Total Ab Non-Reactive (NonReactive); Hep B Core Total Index 0.06 S/CO (0-0.79); Hep B Surf Ag Non-Reactive S/CO (NonReactive)
[2018-10-02] MEDS ORDERED: Recombivax (HEP-B) 5 MCG/0.5 ML VIAL IM ONE (08:37)
[2018-10-02] MEDS ORDERED: HEPATITIS A VACCINE IM ONE (08:37)
[2018-10-02] MEDS ORDERED: Hepatitis B Vaccine 10 MCG/0.5 ML SYR IM ONE (08:45)
[2018-10-02] MEDS ORDERED: Azithromycin 250 MG TAB PO SCH (09:00)
[2018-10-02] MEDS: Escitalopram Oxalate 20 mg Tablet PO SCH (09:40)
[2018-10-02] MEDS: metFORMIN 500 MG TAB PO SCH (09:40)
[2018-10-02] MEDS: Diclofenac Sodium 50 MG DR TAB PO SCH (09:40)
[2018-10-02] MEDS: predniSONE 20 MG TAB PO SCH (09:40)
[2018-10-02] MEDS: HYDROcodone/Acetaminophen 10/325 mg Tablet PO PRN (09:41)
[2018-10-02] MEDS: Enoxaparin Sodium 40 MG/0.4 ML SYRINGE SC SCH (09:44)
[2018-10-02 11:01] LABS: ANA Symphony (Qualitative) Negative (Negative); ANA Symphony (Quantitative) Less than 0.1 Ratio (< 0.7 Negative); dsDNA IgG Antibody 0.7 IU/mL (<10 Negative)
--- NOTE | 2018-10-02 11:49 | PRG ---
DATE OF SERVICE: 10/02/2018 SERVICE: Pulmonary Medicine. INTERVAL HISTORY: The patient is doing fine from respiratory standpoint. Breathing comfortably. She still requires a little bit of oxygen. She continues to cough , but has a hard time liberating sputum. Otherwise, there has been no interval change to her condition. PHYSICAL EXAMINATION: VITAL SIGNS: Afebrile, pulse 80, blood pressure 174/88, respirations 18, and saturation 97% on 3 L nasal cannula. On room air, her saturations are maintained at 88%. HEART: Normal rate and regular. ABDOMEN: Soft, nontender, nondistended. Bowel sounds are positive. MUSCULOSKELETAL: No cyanosis or clubbing. No pitting in the bilateral lower extremities. NEUROLOGIC: Grossly nonfocal. LABORATORY DATA: WBC 4.6, hemoglobin 10.8, platelets 311,000. Potassium 3.8. Basic metabolic profile is otherwise unremarkable. Calcium 9.0. Influenza A and B are negative, blood cultures x2 and respiratory cultures are all negative to date. ASSESSMENT: 1. Acute on chronic hypoxic respiratory failure. 2. Chronic hypercapnic respiratory failure. 3. Community-acquired pneumonia, resolving. 4. Right hemidiaphragm paralysis. 5. Atelectasis of the right middle lobe, right lower lobe, and left lower lobe. 6. Metabolic alkalosis, compensating for chronic hypercapnic failure. DISCUSSION AND PLAN: The patient is stable for transition out of the hospital. She will need 5 days of azithromycin and 7 days of an equivalent of Rocephin. We have arranged for her to be set up with a home volume ventilator for nighttime use and as needed daytime use. Unfortunately, traditional home BiPAP will be insufficient due to the severity of her underlying process. I will have her return to clinic to see me in 4 to 6 weeks in the outpatient setting with a repeat chest x-ray to verify these infiltrates have resolved. If they have not, additional diagnostic studies may be indicated. From my perspective, she is stable for transition out of the hospital today. Job ID: [id number] MTDD
--- NOTE | 2018-10-02 13:06 | PRG ---
DATE OF SERVICE: Ms. Gomez is sitting quietly in bed, in no distress. She is requiring O2 and this will be sent home with her. Otherwise, she is ready for discharge and will receive a home ventilator per recommendations of the Pulmonary Service. She will follow up with PCP as she would need immunizations for hepatitis A and B, and followup for her significant lung problems. Job ID: [id number]
[2018-10-02 15:21] VITALS: BP 169/71; TEMP 97.8
== END 2018-10-02 18:50 | disposition home or self-care (01) | DRG 193 ==
LOC: ERS 21:10 → 2NO 23:44
PROVIDERS: ADMIT Family Medicine; ATTEND Family Medicine
DX: J18.9 Pneumonia, unspecified organism (principal); J96.21 Acute and chronic respiratory failure with hypoxia; I24.8 Other forms of acute ischemic heart disease; E87.1 Hypo-osmolality and hyponatremia; J98.11 Atelectasis; J96.12 Chronic respiratory failure with hypercapnia; F41.9 Anxiety disorder, unspecified; F32.9 Major depressive disorder, single episode, unspecified; R73.03 Prediabetes; R74.0 Nonspecific elevation of levels of transaminase and lactic acid dehydrogenase [LDH]; J98.6 Disorders of diaphragm; K76.0 Fatty (change of) liver, not elsewhere classified; E78.00 Pure hypercholesterolemia, unspecified; Z79.84 Long term (current) use of oral hypoglycemic drugs; Z85.3 Personal history of malignant neoplasm of breast; Z90.13 Acquired absence of bilateral breasts and nipples; Z87.891 Personal history of nicotine dependence; Z79.899 Other long term (current) drug therapy
CPT/HCPCS: 36415; 36416; 71045; 71260; 76000; 76705; 80048; 80053; 81003; 82553; 82805; 83036; 83605; 83880; 83930; 83935; 84145; 84300; 84484; 85025; 85652; 86038; 86225; 86704; 86705; 86708; 86709; 86803; 87040; 87070; 87205; 87340; 87350; 87385; 87804; 93005; 94640; 96361; 96365; J0456; J0696; J1650; J1956; J7050; J7620; Q9966

== ENCOUNTER 2018-11-21 08:26 | Outpatient (CLI) | payer MEDICARE, BC ==
--- NOTE | 2018-11-21 10:00 | MRI ---
MRI lumbar spine noncontrast: 11/21/2018 HISTORY: 68-year-old female with intervertebral disc disorder, low back pain, and lumbar spondylosis. COMPARISON: None FINDINGS: For the purposes of this report, it will be assumed that there are 5 lumbar-type vertebrae. There is a severe dextroscoliosis of the lumbar spine centered at L2-3. When the patient is supine, t his is 53 degrees (it is probably worse when the patient stands out). There is a compensatory levoscoliosis of the lower thoracic spine. No high-grade vertebral body collapse. There is degenerati ve disc disease and degenerative facet disease throughout all levels, asymmetrically more severe along the left, concave side of curvature at L1-2, L2-3, and L3-4; and on the right, concave side of the counter curvature at L4-5 and L5-S1. Associated chronic grade 1 left lateral subluxation of L1 on L2, and grade 1 right lateral chronic subluxations of L3 on L4, and of L4 on L5. Minimal grade 1 a nterolisthesis of L4 on L5. No major spondylolisthesis. Conus medullaris terminates at approximately L2. There is distortion of the spinal canal and thecal sac due to the severe scoliosis, but no high-grade central spinal canal stenosis at any level. There is moderate left neural foraminal stenosis along the left, concave side of the curvature at L1-2. The compensatory concavity at L5-S1 results in contact and high-grade degenerative changes between the right L5 transverse process and right S1 sacral ala. IMPRESSION: 1. Severe dextroscoliosis. 2. Severe lumbar spondylosis, with multilevel high-grade degenerative disc disease and facet osteoart hrosis, including severe. 3. pseudoarthrosis, high-grade, at contact between right L5 transverse process and the top of right S 1 sacral ala. 4. No high-grade central spinal canal stenosis at any level. 5. High-grade left L1-2 neural foraminal stenosis.
== END 2018-11-21 08:27 | disposition home or self-care (01) ==
LOC: BICMRI 08:26
PROVIDERS: ATTEND Specialist
DX: M51.16 Intervertebral disc disorders with radiculopathy, lumbar region (principal); M41.9 Scoliosis, unspecified; M47.26 Other spondylosis with radiculopathy, lumbar region; M48.061 Spinal stenosis, lumbar region without neurogenic claudication
CPT/HCPCS: 72148

== ENCOUNTER 2019-02-20 07:38 | Outpatient (CLI) | payer MEDICARE, BC ==
--- NOTE | 2018-09-28 22:58 | PDOC.FPRHP ---
- History PMHx: PSHx: FHx: Social: - Vital signs BP: [] HR: [] RR: [] Tmax: [] Pox: []% on [] Wt: [] FMR H&P: Upper Level - Plan Date/Time: 09/28/18 8670 I, [], have evaluated this patient and agree with findings/plan as outlined by international exchange coordinator resident. Pertinent changes/additions are listed here.
== END 2019-02-20 07:39 | disposition home or self-care (01) ==
LOC: CP 07:38
PROVIDERS: ATTEND Internal Medicine Pulmonary Disease
DX: J44.9 Chronic obstructive pulmonary disease, unspecified (principal)
CPT/HCPCS: 94060; 94727; 94729

== ENCOUNTER 2019-04-02 09:39 | Outpatient (CLI) | payer MEDICARE, BC ==
--- NOTE | 2019-04-02 10:38 | MMO ---
Bilateral MAMMO Bilat Screen [facility]. CLINICAL HISTORY: Patient is 69 years old and is seen for screening. The patient has no family history of breast cancer. The patient has a history of right Mastectomy in 2011 - malignant. VIEWS: The views performed were: bilateral craniocaudal with tomosynthesis and bilateral mediolateral oblique with tomosynthesis. FILMS COMPARED: The present examination has been compared to a prior imaging study performed at [facility] on 03/29/2018. This study has been interpreted with the assistance of computer-aided detection. MAMMOGRAM FINDINGS: There are scattered fibroglandular densities. Finding 1: There are benign appearing calcifications seen in the left breast. Finding 2: There is a stable biopsy clip seen in the left breast. There are no suspicious masses, suspicious calcifications, or new areas of architectural distortion. IMPRESSION: THERE IS NO MAMMOGRAPHIC EVIDENCE OF MALIGNANCY. A ROUTINE FOLLOW-UP MAMMOGRAM IN 1 YEAR IS RECOMMENDED. THE RESULTS OF THIS EXAM WERE SENT TO THE PATIENT. ACR BI-RADS Category 2 - Benign finding MAMMOGRAPHY NOTE: 1. A negative mammogram report should not delay a biopsy if a dominant of clinically suspicious mass is present. 2. Approximately 10% to 15% of breast cancers are not detected by mammography. 3. Adenosis and dense breasts may obscure an underlying neoplasm. Reported by: BARBRA CHAVIRA MD Electonically Signed: [id number]
== END 2019-04-02 09:40 | disposition home or self-care (01) ==
LOC: BICMAMMO 09:39
PROVIDERS: ATTEND Specialist
DX: Z12.31 Encounter for screening mammogram for malignant neoplasm of breast (principal); Z90.11 Acquired absence of right breast and nipple
CPT/HCPCS: 77063; 77067

== ENCOUNTER 2019-04-26 10:24 | Outpatient (CLI) | payer MEDICARE, BC ==
--- NOTE | 2019-04-26 10:45 | RAD ---
EXAM: Chest 2 views: HISTORY: Dyspnea COMPARISON: 08/15/2018 FINDINGS: There is a normal-sized cardiomediastinal silhouette. There is stable elevation of the right hemidia phragm. There is no evidence of consolidation, mass, or pleural effusion. Patient is status post left shoulder arthroplasty. IMPRESSION: No evidence of acute cardiopulmonary disease
== END 2019-04-26 10:25 | disposition home or self-care (01) ==
LOC: RAD 10:24
PROVIDERS: ATTEND Internal Medicine
DX: R06.00 Dyspnea, unspecified (principal)
CPT/HCPCS: 71046

== ENCOUNTER 2020-04-06 10:45 | Outpatient (CLI) | payer MEDICARE, BC ==
--- NOTE | 2020-04-06 13:18 | MMO ---
Bilateral MAMMO Bilat Screen [facility]. CLINICAL HISTORY: Patient is 70 years old and is seen for screening. The patient has no family history of breast cancer. The patient has a history of right Mastectomy in 2011 - malignant. VIEWS: The views performed were: left craniocaudal with tomosynthesis and left mediolateral oblique with tomosynthesis. FILMS COMPARED: The present examination has been compared to prior imaging studies performed at [facility] on 12/07/2015 and 12/26/2016, and at [facility] on 03/29/2018 and 04/02/2019. This study has been interpreted with the assistance of computer-aided detection. MAMMOGRAM FINDINGS: There are scattered fibroglandular densities. There are benign appearing calcifications in the left breast. Left biopsy clip. There are no suspicious masses, suspicious calcifications, or new areas of architectural distortion. IMPRESSION: THERE IS NO MAMMOGRAPHIC EVIDENCE OF MALIGNANCY. A ROUTINE FOLLOW-UP MAMMOGRAM IN 1 YEAR IS RECOMMENDED. THE RESULTS OF THIS EXAM WERE SENT TO THE PATIENT. ACR BI-RADS Category 2 - Benign finding MAMMOGRAPHY NOTE: 1. A negative mammogram report should not delay a biopsy if a dominant of clinically suspicious mass is present. 2. Approximately 10% to 15% of breast cancers are not detected by mammography. 3. Adenosis and dense breasts may obscure an underlying neoplasm. Reported by: NICHELLE PENA MD Electonically Signed: [id number]
== END 2020-04-06 10:46 | disposition home or self-care (01) ==
LOC: BICMAMMO 10:45
PROVIDERS: ATTEND Internal Medicine Hematology & Oncology
DX: Z12.31 Encounter for screening mammogram for malignant neoplasm of breast (principal); Z85.3 Personal history of malignant neoplasm of breast; Z90.11 Acquired absence of right breast and nipple
CPT/HCPCS: 77063; 77067

== ENCOUNTER 2020-04-13 15:49 | Outpatient (CLI) | payer MEDICARE, BC ==
--- NOTE | 2020-04-13 16:57 | ULT ---
ULTRASOUND RIGHT CHEST WALL: Patient is post mastectomy with reconstruction and tram flap. Indications: Questions of a new palpable abnormality in the right chest wall. FINDINGS: Directed soft tissue ultrasound was performed of the right chest wall at the area of concern. No susp icious mass identified by ultrasound. No fluid collection. IMPRESSION: No sonographic abnormality identified. POS: OFF
== END 2020-04-13 15:50 | disposition home or self-care (01) ==
LOC: BICULT 15:49
PROVIDERS: ATTEND Internal Medicine Hematology & Oncology
DX: R22.2 Localized swelling, mass and lump, trunk (principal)
CPT/HCPCS: 76999

== ENCOUNTER 2020-06-12 13:50 | Outpatient (CLI) | payer MEDICARE, BC ==
--- NOTE | 2020-06-12 14:55 | BD ---
DEXA BONE DENSITY EXAM: COMPARISON: 03/29/2018. HISTORY: A 70-year-old postmenopausal female for screening. FINDINGS: Lumbar Spine: BMD (g/cm2) L1 0.862 T-Score: -1.2 L2 0.995 T-Score: -0.3 L3 1.003 T-Score: -0.7 L4 0.997 T-Score: -0.6 L1-L4 0.964 T-Score: -0.8 Left: Femoral Neck: 0.644 T-Score: -1.9 Total Femur: 0.809 T-Score: -1.1 Right: Femoral Neck: 0.779 T-Score: -1.3 Impression: Osteopenia. This patient's 10-year WHO fracture risk of a major osteoporotic fracture is 15% and of a hip fracture is 2.7%. POS: EAA
== END 2020-06-12 13:51 | disposition home or self-care (01) ==
LOC: BICMAMMO 13:50
PROVIDERS: ATTEND Internal Medicine Rheumatology
DX: M81.0 Age-related osteoporosis without current pathological fracture (principal); M85.89 Other specified disorders of bone density and structure, multiple sites
CPT/HCPCS: 77080

== ENCOUNTER 2020-11-19 10:40 | Outpatient (CLI) | payer MEDICARE | END 2020-11-19 10:41 | disposition home or self-care (01) | LOC: BICRAD 10:40 | PROVIDERS: ATTEND Internal Medicine Critical Care Medicine | DX: R06.00 Dyspnea, unspecified (principal); J98.6 Disorders of diaphragm | CPT/HCPCS: 71046 ==